=== PATIENT | male | born 1990 | race Caucasian/White ===

== ENCOUNTER 2017-05-27 16:41 | Emergency (ER) | payer MEDICAID ==
[2017-05-27] MEDS ORDERED: HYOSCYAMINE SL 0.125 MG TABLET SL STA (17:52)
[2017-05-27] MEDS ORDERED: DEXAMETHASONE 10 MG/ML VIAL IVP STA (17:52)
[2017-05-27] MEDS ORDERED: HALOPERIDOL 5 MG/ML VIAL IVP STA (17:52)
[2017-05-27 17:57] LABS: BASOPHILS % (AUTO) 0.4 %; EOSINOPHILS # (AUTO) 0.1 10^3/uL (0.0-0.7); EOSINOPHILS % (AUTO) 0.8 %; HGB - HEMOGLOBIN 16.2 g/dL (14.0-18.0); LYMPHOCYTES # (AUTO) 1.3 10^3/uL (1.5-3.5); LYMPHOCYTES % (AUTO) 17.1 %; MEAN CORPUSCULAR HGB CONC 33.2 g/dL (32.0-36.0); MEAN CORPUSCULAR VOLUME 87.3 fL (80.0-94.0); MEAN PLATELET VOLUME 8.1 fL (7.4-11.4); MONOCYTES # (AUTO) 0.6 10^3/uL (0.0-1.0); MONOCYTES % (AUTO) 7.7 %; NEUTROPHILS # (AUTO) 5.7 10^3/uL (1.5-6.6); RED BLOOD COUNT 5.61 10^6/uL (4.70-6.10); RED CELL DISTRIBUTION WIDTH 13.4 % (12.0-15.0); UNCORRECTED WHITE BLOOD COUNT 7.8 x10^3/uL; WHITE BLOOD COUNT 7.8 x10^3/uL (4.8-10.8)
[2017-05-27 18:06] LABS: ALBUMIN/GLOBULIN RATIO 1.6 (1.0-2.2); BILIRUBIN,TOTAL 0.4 mg/dL (0.2-1.0); CALCIUM 9.2 mg/dL (8.5-10.3); CREATININE 0.9 mg/dL (0.6-1.2); POTASSIUM 4.3 mmol/L (3.5-5.0); TOTAL PROTEIN 7.9 g/dL (6.7-8.2)
[2017-05-27] MEDS ORDERED: HYOSCYAMINE SL 0.125 MG TABLET SL ONE (18:12)
[2017-05-27] MEDS ORDERED: DEXAMETHASONE 10 MG/ML VIAL ONE (18:12)
[2017-05-27] MEDS ORDERED: HALOPERIDOL 5 MG/ML VIAL ONE (18:12)
--- NOTE | 2017-05-27 18:14 | ED Physician Documentation ---
PD HPI ABD PAIN - Stated complaint Stated Complaint: ABD PX - Chief complaint Chief Complaint: Abd Pain - History obtained from History obtained from: Patient - History of Present Illness Timing - onset: How many years ago (2) Timing - duration: Years (2) Timing - details: Gradual onset, Waxing and waning Pain level max: 5 Pain level now: 4 Quality: Cramping, Aching, Pain Location: All over / everywhere Improved by: Other (warm shower) Worsened by: Other (nothing) Associated symptoms: Nausea, Vomiting, Diarrhea. No: Fever, Hematemesis, Constipation, Melena, Hematochezia, Dysuria, Hematuria, Chest pain Similar symptoms before: No diagnosis, Other (has not seen a doctor for this.) Recently seen: Not recently seen - Additional information Additional information: uses marijuana several times per week Review of Systems Constitutional: denies: Fever, Chills Nose: denies: Rhinorrhea / runny nose, Congestion Throat: denies: Sore throat Cardiac: denies: Chest pain / pressure Respiratory: denies: Cough GI: reports: Abdominal Pain, Nausea, Vomiting, Diarrhea Skin: denies: Rash Musculoskeletal: denies: Neck pain, Back pain Neurologic: denies: Headache PD PAST MEDICAL HISTORY - Past Medical History Past Medical History: Yes Other Past Medical History: urethral blockage as a toddler - Past Surgical History Past Surgical History: Yes - Present Medications Home Medications: Ambulatory Orders Medication Instructions Recorded Confirmed Hyoscyamine Sulfate [Levsin-Sl] 0.125 mg SL QID PRN #20 tab.subl 05/27/17 Ondansetron Odt [Zofran] 4 mg TL Q6H PRN #10 tablet 05/27/17 predniSONE [Deltasone] 10 mg PO [id number] #42 tab 05/27/17 - Allergies Allergies/Adverse Reactions: Allergies Allergy/AdvReac Type Severity Reaction Status Date / Time No Known Drug Allergies Allergy Verified 05/27/17 16:56 - Social History Does the pt smoke?: No Smoking Status: Never smoker Does the pt drink ETOH?: No Does the pt have substance abuse?: Yes Substance Use and Type: Marijuana - Immunizations Immunizations are current?: Yes PD ED PE NORMAL - Vitals Vital signs reviewed: Yes - General General: Alert and oriented X 3, No acute distress - HEENT HEENT: Moist mucous membranes - Neck Neck: Supple, no meningeal sign - Cardiac Cardiac: RRR, No murmur, Strong equal pulses - Respiratory Respiratory: No respiratory distress, Clear bilaterally - Abdomen Abdomen: Normal bowel sounds, Soft, Non tender, Non distended, No organomegaly - Back Back: No spinal TTP - Derm Derm: Warm and dry, No rash - Extremities Extremities: No edema - Neuro Neuro: Alert and oriented X 3 - Psych Psych: Normal mood, Normal affect Results - Vitals Vitals: Vital Signs - 24 hr 05/27/17 05/27/17 05/27/17 16:51 18:01 19:07 Temperature 37.1 C 36.8 C 36.4 C L Heart Rate 90 67 62 Respiratory 16 15 15 Rate Blood Pressure 149/95 H 140/96 H 129/72 O2 Saturation 95 98 100 Oxygen O2 Source Room air - Labs Labs: Laboratory Tests 05/27/17 05/27/17 17:38 17:38 WBC 7.8 RBC 5.61 Hgb 16.2 Hct 49.0 MCV 87.3 MCH 29.0 MCHC 33.2 RDW 13.4 Plt Count 219 MPV 8.1 Neut # 5.7 Lymph # 1.3 L [place] # 0.6 Eos # 0.1 Baso # 0.0 Absolute Nucleated RBC 0.00 Nucleated RBC % 0.0 Sodium 137 Potassium 4.3 Chloride 101 Carbon Dioxide 28 Anion Gap 8.0 BUN 13 Creatinine 0.9 Estimated GFR (MDRD) 102 Glucose 103 H Calcium 9.2 Total Bilirubin 0.4 AST 17 ALT 20 Alkaline Phosphatase 71 Total Protein 7.9 Albumin 4.9 Globulin 3.0 Albumin/Globulin Ratio 1.6 Lipase 43 PD MEDICAL DECISION MAKING - ED course Complexity details: reviewed results, re-evaluated patient, considered differential, d/w patient ED course: Patient is a 27-year-old male who presents to the emergency department with what appears to be possible cannabinoid-induced hyperemesis versus irritable bowel syndrome versus inflammatory bowel disease. Given Haldol and he did become jittery, this resolved with Cogentin. However it did also resolve his symptoms. He felt much better. He was also given dexamethasone will start on steroids for home. We will also treat him with antispasmodics. Patient was counseled to stay away from marijuana and to follow-up closely with his PCP for possible referral to gastroenterology for colonoscopy. Patient does not have a family history of IBS or IBD. Patient counseled regarding signs and symptoms for which I believe and urgent re-evaluation would be necessary. Patient with good understanding of and agreement to plan and is comfortable going home at this time This document was made in part using voice recognition software. While efforts are made to proofread this document, sound alike and grammatical errors may occur. Departure - Departure Disposition: Home, Self Care Clinical Impression: Abdominal pain Qualifiers: Abdominal location: unspecified location Qualified Code(s): R10.9 - Unspecified abdominal pain Condition: Good Instructions: ED Abdominal Pain Unkn Cause Follow-Up: your,doctor in 1 week [Other] Prescriptions: Hyoscyamine Sulfate [Levsin-Sl] 0.125 mg SL QID PRN #20 tab.subl PRN Reason: Abdominal Pain Ondansetron Odt [Zofran] 4 mg TL Q6H PRN #10 tablet PRN Reason: Nausea / Vomiting predniSONE [Deltasone] 10 mg PO [id number] #42 tab Comments: Return if you worsen. The cause of your symptoms is unclear, but may be related to irritable bowel syndrome or inflammatory bowel disease such as Crohn' s disease or ulcerative colitis. You should also stop using marijuana as this may be contributing to your symptoms. Discharge Date/Time: 05/27/17 19:11
[2017-05-27] MEDS ORDERED: BENZTROPINE 2 MG/2 ML AMP IVP STA (18:31)
[2017-05-27] MEDS ORDERED: BENZTROPINE 2 MG/2 ML VIAL ONE (18:37)
[2017-05-27] MEDS ORDERED: diphenhydrAMINE INJ 50 MG/ML VIAL IVP STA (18:45)
[2017-05-27] MEDS ORDERED: diphenhydrAMINE INJ 50 MG/ML VIAL ONE (18:52)
[2017-05-27 19:08] VITALS: BP 129/72
== END 2017-05-27 19:11 | disposition home or self-care (01) ==
LOC: ED 16:41
DX: R10.9 Unspecified abdominal pain (principal)
CPT/HCPCS: 36415; 80053; 83690; 85025; 96374; 96375; 99283; A9270; J0515